=== PATIENT | male | born 1955 | race Caucasian/White ===

== ENCOUNTER 2020-02-15 07:29 | Emergency (ER) | payer OTHER ==
[~2020-02-15] VITALS: Ht 157.5 cm; Wt 54.4 kg
[~2020-02-15 07:29] MED LIST: DOLOGESIC CAPLE1 TAB PO; FLOVENT 110MCG7.9 GM IH; PEPCID40 MG PO; PROTONIX40 MG PO; PROVENTIL3 ML/2.5 M IH; TUSSIONEX PENNKI5 ML PO; ZANTAC300 MG PO
[2020-02-15] MEDS ORDERED: XOPENEX HFA15 GM (08:00)
== END 2020-02-15 11:27 | disposition home or self-care (01) ==
LOC: ER 07:29
DX: K29.70 Gastritis, unspecified, without bleeding (principal)

== ENCOUNTER 2020-07-16 01:34 | Emergency (ER) | payer OTHER ==
[~2020-07-16] VITALS: Ht 157.5 cm; Wt 55.8 kg
[~2020-07-16 01:34] MED LIST changes: +XOPENEX HFA15 GM
[2020-07-16] MEDS ORDERED: RIZATRIPTAN5 MG (01:51)
[2020-07-16] MEDS ORDERED: ZYNCOF 20-400120 ML PO (05:32)
== END 2020-07-16 06:16 | disposition home or self-care (01) ==
LOC: ER 01:34
DX: J45.998 Other asthma (principal); R05 Cough

== ENCOUNTER 2021-03-01 17:12 | Emergency (ER) | payer OTHER ==
[~2021-03-01] VITALS: Ht 157.5 cm; Wt 57.2 kg
[~2021-03-01 17:12] MED LIST changes: +RIZATRIPTAN5 MG; +ZYNCOF 20-400120 ML PO
[2021-03-01] MEDS ORDERED: ZANTAC25 MG/1 ML IJ (17:23)
[2021-03-01] MEDS ORDERED: ALKA-SELTZER E1 EACH PO (17:23)
== END 2021-03-01 23:52 | disposition home or self-care (01) ==
LOC: ER 17:12
DX: R05 Cough (principal); Z11.52 Encounter for screening for COVID-19